=== PATIENT | female | born 1980 | race Caucasian/White ===

== ENCOUNTER 2019-12-07 14:25 | Emergency (ER) | payer BC, MEDICAID ==
[~2019-12-07] VITALS: Ht 162.6 cm; Wt 83.9 kg
[2019-12-07 14:52] VITALS: BP 110/78
--- NOTE | 2019-12-07 14:59 | NUR ---
Patient discharged to home in stable conditon. Written and verbal after care instructions given. Patient verbalizes understanding of instructions.
== END 2019-12-07 15:01 | disposition home or self-care (01) ==
LOC: ER 14:25 → EDBD 14:25 → ER 15:01
DX: T78.40XA Allergy, unspecified, initial encounter (principal); T45.0X5A Adverse effect of antiallergic and antiemetic drugs, initial encounter; Z88.8 Allergy status to other drugs, medicaments and biological substances; Z79.899 Other long term (current) drug therapy; Y92.89 Other specified places as the place of occurrence of the external cause
CPT/HCPCS: A4663